=== PATIENT | female | born 1970 | race Caucasian/White ===

== ENCOUNTER 2017-04-24 09:08 | Emergency (ER) | payer SELFPAY ==
[~2017-04-24] VITALS: Ht 160 cm; Wt 108.9 kg
[~2017-04-24 09:08] MED LIST: CLARITIN LIQUI-10 MG PO; DICLOFENAC 50MG50 MG PO; VENTOLIN H0.09 MG/AC IH
--- OUTSIDE RECORDS SUMMARY | 2017-04-24 09:11 | External Medical Summary Rpt ---
Author Author CHRISTOPHER Barrett, [employer] Organization [employer] Address Unknown Phone Unavailable
--- OUTSIDE RECORDS SUMMARY | 2017-04-24 09:11 | External Medical Summary Rpt | CCD ---
Author Author , CHRISTOPHER WHITE Address Unknown Phone Purpose Continuity of Care Document - through 2016 Problems Code Diagnosis DOS Provider Status S93.401A SPRAIN OF UNSPECIFIED LIGAMENT OF RIGHT ANKLE, INIT ENCNTR
--- OUTSIDE RECORDS SUMMARY | 2017-04-24 09:11 | External Medical Summary Rpt | CCD ---
Author Author , CHRISTOPHER WHITE Address Unknown Phone [email or web address] Purpose Continuity of Care Document - through 2016 Problems Code Diagnosis DOS Provider Status S93.401A SPRAIN OF UNSPECIFIED LIGAMENT OF RIGHT ANKLE, INIT ENCNTR
--- OUTSIDE RECORDS SUMMARY | 2017-04-24 09:11 | External Medical Summary Rpt | CCD ---
Demographics Preferred Language Tamazight Marital Status Unknown Zoroastrianism Affiliation Unknown Race Unknown Ethnic Group Unknown Author Author , CHRISTOPHER WHITE Address Unknown Phone Immunization No patient found.
--- OUTSIDE RECORDS SUMMARY | 2017-04-24 09:11 | External Medical Summary Rpt | CCD ---
Author Author [employer] Organization [employer] Address Unknown Phone Unavailable Purpose Continuity of Care Document - through 2016
--- OUTSIDE RECORDS SUMMARY | 2017-04-24 09:11 | External Medical Summary Rpt | CCD ---
Demographics Preferred Language Swedish Marital Status Unknown Taoism Affiliation Unknown Race Unknown Ethnic Group Unknown Author Author , CHRISTOPHER WHITE Address Unknown Phone Immunization No patient found.
[2017-04-24] MEDS ORDERED: FLEXERIL10 MG PO (09:55)
[2017-04-24] MEDS ORDERED: NAPROSYN 500MG500 MG PO (09:55)
--- NOTE | 2017-04-24 09:57 | Urgent Treatment Center Report ---
History of Present Issue Date/Time Seen by Provider 04/24/17 0910 Visit Reason Pt arrived:Walked Presenting Problem:PT C/O LT ARM NUMBNESS/TINGLING Location if Accident: Onset of symptoms date/time:/ or onset unknown for:MEDICAL HX UNKNOWN Have you (or family members/close friends) recently traveled outside the [place]? N If Yes, where/when: Have you had exposure to infectious disease within the past month? TB? Other? 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 "Feels like it would be numb but it isn't". Started w/ left posterior shoulder pain one week ago. Denies known injury. "I just woke up with it in a kink". Initially left UE symptoms intermittent but last 3 days, becoming more constant. Able to get relief laying supine w/ heating pad behind left shoulder blade. No relief with previously prescribed muscle relaxer BID x 1 day. Able to "finally get some sleep" after taking an old pain pill previously prescribed post hysterectomy; pt thinks oxycodone. Spouse masaged left shoulder and reported "a knot just below my shoulder blader but above my bra strap". Pt reports "marked tenderness" with palpation. Tried an OTC "shock stimulator" once without relief. Pain currently 10/10 left shoulder blade. Described as sharp, worse with LUE movement. Pain throughout LUE described as "like a dull constant headache". Denies weakness. No right UE symptoms. Has noticed pain in neck, "only on the left side". Hasn't taken or tried any otc pain relievers. Recalls having sciatica during a and reports this feels similiar but in her arm, not leg. Source patient Exam Limitations no limitations ALLERGIES Coded Allergies: No Known Allergies (08/12/16) Home Medications Active Scripts DICLOFENAC SODIUM (Diclofenac 50MG) 50 MG PO BID #60 TAB Prov: 08/12/16 Loratadine (Claritin) 10 MG PO DAILY #15 SGL Ref 1 Prov: 01/25/16 ALBUTEROL (Ventolin Hfa) 1 PUFF IH Q6H6 #1 INH Prov: 01/25/16 History Medical History General CAD? No Angina: No IA: No Hypertension? No Hyperlipidemia? No CHF? No DVT? No PE? No COPD? No Asthma? No Anemia? No GERD? No Gastric ulcers? No GI Bleed? No Hernia? No Thyroid Problems? No Hypothyroidism? No CVA? No Seizures? No Diabetes? No Renal Insuffiency? No UTI? No Stones? No BPH? No GB Disease: No Nephritic Syndrome? No Asplenia? No Hepatitis? No Sickle Cell Disease? No Arthritis? No Migraines? No Cataracts? No Glaucoma? No MRSA? No HIV? No TB? No Anxiety? No Depression? No Cancer? No More? No Immunization HX DT/Tetanus 1-4 Years Ago Surgical Hx Previous Surgery?Y Cholecystectomy 3 X C/S HYSTERECTOMY Social History Smoking Hx Smoker: Current Every Day Smoker Tobacco: Yes Type N/A Packs/day < 1 Pack Alcohol Alcohol: No Review of Systems All Other Systems Reviewed and Negative (as appropriate for CC) Constitutional see HPI, denies fever, denies malaise ENT denies: ear pain, other (change hearing, tinnitus). Respiratory denies cough, denies shortness of breath Cardiovascular denies chest pain, denies palpitations Gastrointestinal denies nausea, denies vomiting Musculoskeletal see HPI, denies joint swelling, muscle stiffness Skin denies change in color, denies lesions, denies rash Psychiatric/Neurological see HPI, denies headache, denies other (dizziness) Physical Exam Vital Signs Vital Signs Date Time Temp Pulse Resp B/P Pulse O2 O2 Flow FiO2 Ox Delivery Rate 04/24 0950 20 04/24 0910 98.2 90 17 159/102 97 General Appearance no apparent distress, obese Eye Exam - bilateral eye normal exam Neck normal inspection, supple, full range of motion (w/ inc pain rotation to left), TTP left posterior, NO spinal tenderness, discussed spinal xrays and pt declined Respiratory Status Yes: trachea midline, chest symmetrical, non tender chest. No: respiratory distress, use of accessory muscles, pain on inspiration, pain on expiration, productive cough, non productive cough. Lung Sounds anterior: lungs clear. posterior: lungs clear. bilateral: lungs clear. 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 No known reason she can't take NSAIDs "just didn't think to". Denies a hx of HTN but also doesn't go to doctor "often". No PCP. Denies pertinent medical hx "that I know of". Mom reports "she never goes to the doctor. Just like me." Pt agrees to monitor blood pressure to ensure not elevated only due to pain. Aware if remains this elevated , need for further evaluation and likely blood pressure medication as she is at risk for IA/Stroke. States + understanding and agrees to follow up if remains elevated Medical Decision Making LABS/Meds/Orders Pt receiving controlled substance in ED? No Results/Orders Current Medication Orders Sig/Missy Start time Last Medication Dose Route Stop Time Status Admin Orphenadrine Citrate 0 .STK-MED ONE 04/24 934 DC .ROUTE Ketorolac 0 .STK-MED ONE 04/24 933 DC Tromethamine .ROUTE Ketorolac 60 MG ONCE ONE 04/24 930 DC 04/24 Tromethamine IM 04/24 931 0950 Orphenadrine Citrate 60 MG ONCE ONE 04/24 930 DC 04/24 IM 04/24 931 0950 Departure Departure Time of Disposition 0950 Disposition DC Home or Self Care(routine) Clinical Impression Primary Impression: Strain of left trapezius muscle Qualifiers: Encounter type: initial encounter Qualified Code: S46.812A - Strain of other muscles, fascia and tendons at shoulder and upper arm level, left arm, initial encounter Condition STABLE Referrals NO REFERRAL we have provided you with a list of providers accepting patients. I would encourage you find him a new primary care provider and make an appt ARUN as it can take weeks to get a new patient appointment. In the meantime, follow up in the clinic or ER for new, worsening or persistent symptoms as further evaluation or treatment will be necessary if the prescribe Plan of care is not helping. Patient Instructions DI for Muscle Spasm, DI for Muscle Strain Additional Instructions * naproxen every 12 hours with meal as needed for pain/inflammation. * Remember you had a toradol shot, similiar anti-inflammatory in clinic so no dose until later this evening * No additional anti-inflammatories like motrin, aleve, advil with the above amount of naproxen. You CAN still take Tylenol every 4 hours as needed if you need something more for pain. * Ice x15-20 mins 3-4 times a day for first 48 hours after the initial injury followed by moist heat x15-20 mins 3-4 times a day to affected area. If only heat is helping, stick with heat since you are one week out from onset. * Muscle relaxer every 8 hours as needed for muscle spasms but remember, it WILL cause drowsiness. You can NOT take it and drive, operate machinary or care for small children REMEMBER you had a muscle relaxer shot in clinic that will cause drowsiness. You can NOT take it and drive, operate machinary or care for small children. Do not take flexeril for at least 8-12 hours. * Keep this area active. No movement leads to more stiffness. However, take it easy too and avoid heavy lifting, pushing, pulling. * If no improvement over the next 3-4 days or anytime if symptoms worsen, follow up is important. Monitor blood pressure and if despite improvement in pain, BP remains >140/90, follow up extremely important as you are at risk for heart attack and/or stroke with blood pressure being as high as it was today. Discharge Counseling Counseled pt/family regarding diagnosis, medications/RX, home care, follow up needs Prescriptions Current Visit Scripts Cyclobenzaprine Hcl (Flexeril) 0.5-1 TAB PO TIDP PRN muscle spasm #9 TAB will cause drowsiness NAPROXEN (NAPROSYN 500MG TAB) 500 MG PO BID #14 TAB take with food Comments At discharge, pt recalls carrying a large windshield at work on day before symptoms started. "I always carry everything with my left arm too". Also reports sitting on a stool working on a computer the largest part of the day at work. Plans to pay more attention at work and see if something posture/work green is aggravating symptoms. at 1002
[2017-04-24 10:15] VITALS: BP 159/102
== END 2017-04-24 10:17 | disposition home or self-care (01) ==
LOC: UTC 09:08
DX: T78.40XA Allergy, unspecified, initial encounter (principal); Z87.891 Personal history of nicotine dependence

== ENCOUNTER 2017-05-02 11:43 | Emergency (ER) | payer SELFPAY ==
[~2017-05-02] VITALS: Ht 160 cm; Wt 108.9 kg
[~2017-05-02 11:43] MED LIST changes: +FLEXERIL10 MG PO; +NAPROSYN 500MG500 MG PO
--- OUTSIDE RECORDS SUMMARY | 2017-05-02 11:46 | External Medical Summary Rpt | CCD ---
Demographics Preferred Language Yoruba Marital Status Unknown Mandaeism Affiliation Unknown Race Unknown Ethnic Group Unknown Author Author , CHRISTOPHER WHITE Address Unknown Phone Immunization No patient found.
--- OUTSIDE RECORDS SUMMARY | 2017-05-02 11:46 | External Medical Summary Rpt | CCD ---
Demographics Preferred Language Macedonian Marital Status Unknown Protestant Affiliation Unknown Race Unknown Ethnic Group Unknown Author Author , CHRISTOPHER WHITE Address Unknown Phone Immunization No patient found.
--- OUTSIDE RECORDS SUMMARY | 2017-05-02 11:46 | External Medical Summary Rpt ---
Author Author CHRISTOPHER Barrett, [employer] Organization [employer] Address Unknown Phone Unavailable
--- OUTSIDE RECORDS SUMMARY | 2017-05-02 11:46 | External Medical Summary Rpt | CCD ---
Author Author , CHRISTOPHER WHITE Address Unknown Phone [email or web address] Purpose Continuity of Care Document - through 2016 Problems Code Diagnosis DOS Provider Status S93.401A SPRAIN OF UNSPECIFIED LIGAMENT OF RIGHT ANKLE, INIT ENCNTR
--- OUTSIDE RECORDS SUMMARY | 2017-05-02 11:46 | External Medical Summary Rpt | CCD ---
Author Author , CHRISTOPHER WHITE Address Unknown Phone [email or web address] Purpose Continuity of Care Document - through 2016 Problems Code Diagnosis DOS Provider Status S93.401A SPRAIN OF UNSPECIFIED LIGAMENT OF RIGHT ANKLE, INIT ENCNTR
--- NOTE | 2017-05-02 12:16 | Urgent Treatment Center Report ---
History of Present Issue Date/Time Seen by Provider 05/02/17 1209 Visit Reason Pt arrived:Walked Presenting Problem:RASH ALL OVER BEGAN THIS WEEKEND, STATES JUST FINISHED FLEXERIL Location if Accident: Onset of symptoms date/time:/ or onset unknown for:MEDICAL HX UNKNOWN Have you (or family members/close friends) recently traveled outside the [place]? N If Yes, where/when: Have you had exposure to infectious disease within the past month? TB? Other? Specify: Patient states that she was recently on Naproxin and Flexaril State that she finished talking them on Monday and then she began to break out in a rash all over her body States that the rash in on her chest, abdomen, arms, neck and face area State that it itches and was initially welped up and she has scratched States that she noticed that she was having more welping and rash breaking out this morning States that she is not sure if it came from the medication or if she may have got into something else ALLERGIES Coded Allergies: No Known Allergies (08/12/16) Home Medications Active Scripts DICLOFENAC SODIUM (Diclofenac 50MG) 50 MG PO BID #60 TAB Prov: 08/12/16 Loratadine (Claritin) 10 MG PO DAILY #15 SGL Ref 1 Prov: 01/25/16 ALBUTEROL (Ventolin Hfa) 1 PUFF IH Q6H6 #1 INH Prov: 01/25/16 Cyclobenzaprine Hcl (Flexeril) 0.5-1 TAB PO TIDP PRN muscle spasm #9 TAB Prov: 04/24/17 NAPROXEN (NAPROSYN 500MG TAB) 500 MG PO BID #14 TAB Prov: 04/24/17 History Medical History General CAD? No Angina: No VA: No Hypertension? No Hyperlipidemia? No CHF? No DVT? No PE? No COPD? No Asthma? No Anemia? No GERD? No Gastric ulcers? No GI Bleed? No Hernia? No Thyroid Problems? No Hypothyroidism? No CVA? No Seizures? No Diabetes? No Renal Insuffiency? No UTI? No Stones? No BPH? No GB Disease: No Nephritic Syndrome? No Asplenia? No Hepatitis? No Sickle Cell Disease? No Arthritis? No Migraines? No Cataracts? No Glaucoma? No MRSA? No HIV? No TB? No Anxiety? No Depression? No Cancer? No More? No Immunization HX DT/Tetanus 1-4 Years Ago Surgical Hx Previous Surgery?Y Cholecystectomy 3 X C/S HYSTERECTOMY Social History Smoking Hx Smoker: Former Smoker Tobacco: No Type Cigarettes Packs/day < 1 Pack Alcohol Alcohol: No Review of Systems All Other Systems Reviewed and Negative Skin rash Physical Exam Vital Signs Vital Signs Date Time Temp Pulse Resp B/P Pulse O2 O2 Flow FiO2 Ox Delivery Rate 05/02 1147 97.9 112 20 156/97 98 General Appearance normal appearance, WD/WN, no apparent distress Respiratory Status Yes: trachea midline, chest symmetrical, non tender chest. No: respiratory distress. Lung Sounds bilateral: normal breath sounds, lungs clear. Cardiovascular normal exam, regular rate/rhythm, no peripheral edema Neurologic alert, normal exam, oriented x 3 Skin rash, Red raised rash, with several areas that where scabed over from scratching noted on abdomen, arms and neck area like that seen with allergic reaction denies changing anything at home or exposure to new soap or detergent unknown exposure Medical Decision Making LABS/Meds/Orders Pt receiving controlled substance in ED? No Results/Orders Current Medication Orders Sig/Missy Start time Last Medication Dose Route Stop Time Status Admin Famotidine 0 .STK-MED ONE 05/02 1222 DC .ROUTE Methylprednisolone 0 .STK-MED ONE 05/02 1222 DC Sodium Succinate .ROUTE Diphenhydramine HCl 0 .STK-MED ONE 05/02 1221 DC .ROUTE Loratadine 0 .STK-MED ONE 05/02 1221 DC PO Diphenhydramine HCl 50 MG ONCE ONE 05/02 1215 DC 05/02 IM 05/02 1216 1225 Famotidine 20 MG ONCE ONE 05/02 1215 DCr 05/02 PO 05/02 1216 1226 Loratadine 10 MG ONCE ONE 05/02 1215 DC 05/02 PO 05/02 1216 1226 Methylprednisolone 125 MG ONCE ONE 05/02 1215 DC 05/02 Sodium Succinate IM 05/02 1216 1225 Progress [facility] Progress Notes Comment Rash improved after medication State that she is not itching anymore and rash is starting to go away Departure Departure Time of Disposition 1304 Disposition DC Home or Self Care(routine) Clinical Impression Primary Impression: Allergic reaction Qualifiers: Encounter type: initial encounter Qualified Code: T78.40XA - Allergy, unspecified, initial encounter Condition STABLE Patient Instructions DI for General Allergic Reactions Additional Instructions Follow up with family doctor If you began to break out again go to family doctor Return if needed Over the counter Benadryl and hydrocortisone will help with itching Discharge Counseling Counseled pt/family regarding diagnosis, medications/RX, home care, follow up needs at 1308
[2017-05-02 13:23] VITALS: BP 142/88
== END 2017-05-02 13:24 | disposition home or self-care (01) ==
LOC: UTC 11:43
DX: T78.40XA Allergy, unspecified, initial encounter (principal); Z87.891 Personal history of nicotine dependence